=== PATIENT | male | born 1970 | race Caucasian/White ===

== ENCOUNTER 2020-07-22 15:00 | Observation (INO) ==
[2020-07-22] MEDS ORDERED: LORazepam 2 MG/1 ML VIAL IV STA ×2 (16:18→19:10)
[2020-07-22 16:26] LABS: Basophils # 0.1 10*3/uL (0.0-0.2); Basophils % 0.5 % (0.0-0.8); Eosinophils # 0.2 10*3/uL (0.0-0.87); Hematocrit 44.6 VOL% (42.0-52.0); Hemoglobin 15.8 GM/DL (14.0-18.0); Immature Granulocytes % 1.1 %; Immature Granulocytes Absolute 0.11 #; Lymphocytes # 2.5 10*3/uL (1.4-4.0); Lymphocytes % 24.6 % (21.2-54.2); Mean Corpuscular HGB Conc 35.4 GM/DL (32-36); Mean Corpuscular Volume 86.6 FL (87-102); Mean Platelet Volume 11.1 FL (9.6-12.0); Neutrophils % 66.8 % (38.7-73.9); Platelet Count 362 T/CUMM (130-400); Red Blood Count 5.15 MC/CUMM (3.8-5.5); Red Cell Distribution Width 13.2 % (9.3-17.3)
[2020-07-22 17:09] LABS: Alanine Aminotransferase 56 U/L (16-61); Albumin 3.9 G/DL (3.4-5.0); Alkaline Phosphatase 124 U/L (45-117); Aspartate Amino Transferase 39 U/L (0-37); Blood Urea Nitrogen 13 MG/DL (7-18); Carbon Dioxide 23 MMOL/L (21-32); Estimated Glom Filtration Rate 140 ML/MIN; Glucose 168 MG/DL (74-106); Osmolality,Calculated 276.8 MOS/KG (273-304); Potassium 3.7 MMOL/L (3.5-5.1); Sodium 137 MMOL/L (136-145); Total Protein 7.1 G/DL (6.4-8.2)
[2020-07-22 17:34] LABS: Barbiturates Screen,Urine Negative (Negative); Benzodiazepines Screen,Urine Negative (Negative); Cannabinoid Screen,Urine Positive (Negative); Opiate Screen,Urine Negative (Negative); Phencyclidine Screen,Urine Negative (Negative)
[2020-07-22] MEDS ORDERED: SODIUM CHLORIDE 0.9% 1,000 ML IV STA (19:10)
[2020-07-22] MEDS ORDERED: VENLAFAXINE 100 MG TABLET PO ONE (20:56)
[2020-07-22] MEDS ORDERED: PANTOPRAZOLE 40 MG TABLET PO SCH (21:00)
[2020-07-22] MEDS ORDERED: GABAPENTIN 300 MG CAPSULE PO SCH (21:00)
[2020-07-22] MEDS ORDERED: QUEtiapine 25 MG TABLET PO SCH (21:00)
[2020-07-22] MEDS ORDERED: PRAZOSIN 1 MG CAPSULE PO STA (21:22)
[2020-07-22] MEDS ORDERED: QUEtiapine 25 MG TABLET PO ONE (21:23)
[2020-07-22] MEDS ORDERED: GABAPENTIN 300 MG CAPSULE PO ONE (21:24)
[2020-07-22] MEDS ORDERED: ONDANSETRON 4 MG/2 ML VIAL IV PRN (21:37)
[2020-07-22] MEDS ORDERED: ACETAMINOPHEN 325 MG TABLET PO PRN (21:37)
[2020-07-22] MEDS ORDERED: NICOTINE 21 MG/24 HR PATCH TRANSDERM PRN (21:37)
[2020-07-22] MEDS ORDERED: GLUCAGON 1 MG VIAL IM PRN (21:37)
[2020-07-22] MEDS ORDERED: DEXTROSE 50% 25 GM/50 ML VIAL IV PRN (21:37)
[2020-07-22] MEDS ORDERED: hydrALAZINE 20 MG/1 ML VIAL IV PRN (21:37)
[2020-07-22] MEDS ORDERED: traZODone 50 MG TABLET PO PRN (21:37)
[2020-07-22] MEDS ORDERED: LORazepam 2 MG/1 ML VIAL IV PRN (21:44)
[2020-07-22] MEDS ORDERED: ENOXAPARIN 40 MG/0.4 ML SYRINGE SUBCUT SCH (22:00)
[2020-07-22] MEDS: QUEtiapine 25 MG TABLET PO SCH (22:24)
[2020-07-22] MEDS: PRAZOSIN 1 MG CAPSULE PO SCH (22:24)
[2020-07-23 05:35] LABS: Basophils # 0.1 10*3/uL (0.0-0.2); Basophils % 0.6 % (0.0-0.8); Eosinophils # 0.3 10*3/uL (0.0-0.87); Eosinophils % 2.3 % (0.00-10.9); Hematocrit 39.6 VOL% (42.0-52.0); Hemoglobin 13.6 GM/DL (14.0-18.0); Immature Granulocytes % 0.8 %; Immature Granulocytes Absolute 0.09 #; Lymphocytes # 3.5 10*3/uL (1.4-4.0); Lymphocytes % 30.9 % (21.2-54.2); Mean Corpuscular HGB Conc 34.3 GM/DL (32-36); Mean Corpuscular Volume 88.6 FL (87-102); Mean Platelet Volume 11.1 FL (9.6-12.0); Monocytes % 7.8 % (1.7-12.7); Neutrophils % 57.6 % (38.7-73.9); Platelet Count 305 T/CUMM (130-400); Red Blood Count 4.47 MC/CUMM (3.8-5.5); Red Cell Distribution Width 13.1 % (9.3-17.3); White Blood Count 11.3 T/CUMM (4-12)
[2020-07-23 05:57] LABS: Calcium 8.5 MG/DL (8.5-10.1); Osmolality,Calculated 282.4 MOS/KG (273-304)
[2020-07-23] MEDS ORDERED: amLODIPine 5 MG TABLET PO SCH (09:00)
[2020-07-23] MEDS: VENLAFAXINE XR 75 MG CAPSULE PO SCH (09:58)
[2020-07-23] MEDS: GABAPENTIN 300 MG CAPSULE PO SCH ×2 (09:59→20:48)
[2020-07-23] MEDS: PANTOPRAZOLE 40 MG TABLET PO SCH ×2 (09:59→20:51)
[2020-07-23] MEDS ORDERED: POTASSIUM CHLORIDE RIDER 10 MEQ in PREMIX 1 EACH IV PRN (13:31)
[2020-07-23] MEDS ORDERED: POTASSIUM CHLORIDE 20 MEQ/15 ML UDCUP PER TUBE PRN (13:31)
[2020-07-23] MEDS: POTASSIUM CHLORIDE 20 MEQ TABLET PO PRN ×4 (16:05→18:47)
[2020-07-23] MEDS: METOPROLOL TARTRATE 25 MG TABLET PO SCH ×2 (16:05→18:45)
[2020-07-23] MEDS: DOCUSATE SODIUM 100 MG CAPSULE PO PRN (16:13)
[2020-07-23] MEDS: PRAZOSIN 1 MG CAPSULE PO SCH (20:48)
[2020-07-23] MEDS: QUEtiapine 25 MG TABLET PO SCH (20:48)
[2020-07-24] MEDS: METOPROLOL TARTRATE 25 MG TABLET PO SCH ×3 (00:37→11:40)
[2020-07-24 05:27] LABS: Calcium 8.5 MG/DL (8.5-10.1); Osmolality,Calculated 280.3 MOS/KG (273-304); Potassium 3.9 MMOL/L (3.5-5.1)
[2020-07-24] MEDS: GABAPENTIN 300 MG CAPSULE PO SCH (10:14)
[2020-07-24] MEDS: PANTOPRAZOLE 40 MG TABLET PO SCH (10:14)
[2020-07-24] MEDS: POTASSIUM CHLORIDE 20 MEQ TABLET PO PRN (10:14)
[2020-07-24] MEDS: VENLAFAXINE XR 75 MG CAPSULE PO SCH (10:14)
[2020-07-24] MEDS: DOCUSATE SODIUM 100 MG CAPSULE PO PRN (10:14)
[2020-07-24 12:56] VITALS: BP 112/72
[2020-07-27] MEDS ORDERED: ERGOCALCIFEROL 50,000 UNIT CAPSULE PO SCH (21:42)
== END 2020-07-24 13:40 | disposition home or self-care (01) ==
LOC: N.EDINP 15:00 → N.ED 15:00 → SUATTDRO 20:10 → N.4E 22:31
PROVIDERS: ADMIT Internal Medicine; ATTEND Phlebology

== ENCOUNTER 2020-09-27 08:36 | Inpatient (IN) ==
[2020-09-27 09:03] LABS: Basophils # 0.1 10*3/uL (0.0-0.2); Basophils % 0.6 % (0.0-0.8); Eosinophils # 0.3 10*3/uL (0.0-0.87); Eosinophils % 2.4 % (0.00-10.9); Hematocrit 36.4 VOL% (42.0-52.0); Hemoglobin 12.7 GM/DL (14.0-18.0); Immature Granulocytes % 0.8 %; Immature Granulocytes Absolute 0.09 #; Lymphocytes # 3.4 10*3/uL (1.4-4.0); Lymphocytes % 29.6 % (21.2-54.2); Mean Corpuscular HGB Conc 34.9 GM/DL (32-36); Mean Corpuscular Volume 87.5 FL (87-102); Monocytes % 6.1 % (1.7-12.7); Neutrophils % 60.5 % (38.7-73.9); Platelet Count 275 T/CUMM (130-400); Red Blood Count 4.16 MC/CUMM (3.8-5.5); Red Cell Distribution Width 13.9 % (9.3-17.3); White Blood Count 11.4 T/CUMM (4-12)
[2020-09-27] MEDS ORDERED: SODIUM CHLORIDE 0.9% 1,000 ML IV STA (09:16)
[2020-09-27 09:24] LABS: Atypical Lymphocytes Few; Band Neutrophils 1 % (0-10); Eosinophils 8 % (0-10); Lymphocytes 29 % (20-55); Metamyelocytes 1 %; Segmented Neutrophils 56 % (50-85); Total Cells Counted 100
[2020-09-27 09:26] LABS: Microcytosis 1+
[2020-09-27 09:27] LABS: Platelet Estimate Normal
[2020-09-27 09:28] LABS: Alanine Aminotransferase 74 U/L (16-61); Albumin 3.2 G/DL (3.4-5.0); Alkaline Phosphatase 123 U/L (45-117); Aspartate Amino Transferase 64 U/L (0-37); Bilirubin,Total < 0.39 MG/DL (0.2-1.0); Blood Urea Nitrogen 10 MG/DL (7-18); Calcium 8.2 MG/DL (8.5-10.1); Carbon Dioxide 20 MMOL/L (21-32); Estimated Glom Filtration Rate 146 ML/MIN; Glucose 185 MG/DL (74-106); Osmolality,Calculated 280.5 MOS/KG (273-304); Potassium 3.6 MMOL/L (3.5-5.1); Sodium 139 MMOL/L (136-145); Total Protein 6.2 G/DL (6.4-8.2)
[2020-09-27 09:54] LABS: INR 0.9; PT Patient Result 10.4 SECS (10.5-12.0); Partial Thromboplastin Time 27.3 SECS (23.9-33.8)
[2020-09-27 10:02] LABS: Barbiturates Screen,Urine Negative (Negative); Benzodiazepines Screen,Urine Positive (Negative); Cannabinoid Screen,Urine Positive (Negative); Opiate Screen,Urine Negative (Negative); Phencyclidine Screen,Urine Negative (Negative)
[2020-09-27] MEDS ORDERED: ONDANSETRON 4 MG/2 ML VIAL IV STA (10:52)
[2020-09-27] MEDS ORDERED: MORPHINE 4 MG/1 ML VIAL IV ONE ×2 (10:52→17:22)
[2020-09-27] MEDS ORDERED: DEXTROSE 50% 25 GM/50 ML VIAL IV PRN (11:20)
[2020-09-27] MEDS ORDERED: NICOTINE 21 MG/24 HR PATCH TRANSDERM PRN (11:20)
[2020-09-27] MEDS ORDERED: GLUCAGON 1 MG VIAL IM PRN (11:20)
[2020-09-27] MEDS ORDERED: QUEtiapine 100 MG TABLET PO PRN (11:27)
[2020-09-27] MEDS ORDERED: BISACODYL 5 MG TABLET PO ONE (12:00)
[2020-09-27] MEDS: SODIUM CHLORIDE 0.9% 1,000 ML IV SCH ×2 (12:05→23:02)
[2020-09-27 13:08] LABS: Hepatitis B Core IgM Quant 0.05 Index; Hepatitis B Surface Ag Quant 0.42 Index; Hepatitis B Surface Ag Result Non-Reactive (NonReactive); Hepatitis C Virus Ab Quant 0.05 Index; Hepatitis C Virus Ab Result Non-Reactive (NonReactive)
[2020-09-27 13:11] LABS: % Iron Saturation 20.5 % (18-50); Ferritin 214.7 ng/ml (26-388)
[2020-09-27 13:26] LABS: Folate 22.45 NG/ML (5.38-24.0)
[2020-09-27 15:03] LABS: Hemoglobin 13.7 GM/DL (14.0-18.0)
[2020-09-27] MEDS: ALPRAZolam 0.5 MG TABLET PO SCH ×2 (15:40→21:30)
[2020-09-27] MEDS: GABAPENTIN 300 MG CAPSULE PO SCH ×2 (15:40→21:30)
[2020-09-27] MEDS ORDERED: POLYETHYLENE GLYCOL POWDER 255 GM BOTTLE PO ONE (18:00)
[2020-09-27 19:01] LABS: Hematocrit 36.1 VOL% (42.0-52.0); Hemoglobin 12.4 GM/DL (14.0-18.0)
[2020-09-27] MEDS: PRAZOSIN 1 MG CAPSULE PO SCH (21:30)
[2020-09-27] MEDS: METOPROLOL TARTRATE 25 MG TABLET PO SCH (21:30)
[2020-09-27] MEDS: VENLAFAXINE XR 75 MG CAPSULE PO SCH (21:30)
[2020-09-27] MEDS: PANTOPRAZOLE 40 MG VIAL IV SCH (23:00)
[2020-09-28] MEDS ORDERED: ACETAMINOPHEN 325 MG TABLET PO PRN (00:23)
[2020-09-28 05:06] LABS: Basophils # 0.1 10*3/uL (0.0-0.2); Basophils % 0.5 % (0.0-0.8); Eosinophils # 0.3 10*3/uL (0.0-0.87); Eosinophils % 2.7 % (0.00-10.9); Hematocrit 35.3 VOL% (42.0-52.0); Hemoglobin 11.9 GM/DL (14.0-18.0); Immature Granulocytes % 0.8 %; Immature Granulocytes Absolute 0.07 #; Lymphocytes # 2.8 10*3/uL (1.4-4.0); Lymphocytes % 30.3 % (21.2-54.2); Mean Corpuscular HGB Conc 33.7 GM/DL (32-36); Mean Corpuscular Volume 88.5 FL (87-102); Monocytes % 7.9 % (1.7-12.7); Neutrophils % 57.8 % (38.7-73.9); Platelet Count 261 T/CUMM (130-400); Red Blood Count 3.99 MC/CUMM (3.8-5.5); Red Cell Distribution Width 13.7 % (9.3-17.3); White Blood Count 9.1 T/CUMM (4-12)
[2020-09-28 05:13] LABS: PT Patient Result 10.9 SECS (10.5-12.0)
[2020-09-28 05:32] LABS: Albumin 3.2 G/DL (3.4-5.0); Bilirubin,Total 0.7 MG/DL (0.2-1.0); Calcium 7.8 MG/DL (8.5-10.1); Osmolality,Calculated 278.3 MOS/KG (273-304); Potassium 3.5 MMOL/L (3.5-5.1); Risk Ratio 7.76; Total Protein 6.3 G/DL (6.4-8.2); VLDL CHOLESTEROL 217.8 MG/DL
[2020-09-28 05:38] LABS: Eosinophils 6 % (0-10); Lymphocytes 32 % (20-55); Nucleated Red Blood Cells 1 (0-5); Platelet Estimate Adequate; Segmented Neutrophils 58 % (50-85); Total Cells Counted 100
[2020-09-28 05:39] LABS: Atypical Lymphocytes Few; Hypochromasia 1+; Microcytosis 1+
[2020-09-28] MEDS ORDERED: MAGNESIUM CITRATE 300 ML BOTTLE PO ONE (06:00)
[2020-09-28] MEDS ORDERED: LACTATED RINGERS 1,000 ML IV SCH (08:00)
[2020-09-28] MEDS: SODIUM CHLORIDE 0.9% 1,000 ML IV SCH (08:15)
[2020-09-28] MEDS: ALPRAZolam 0.5 MG TABLET PO SCH ×3 (08:21→20:39)
[2020-09-28] MEDS: METOPROLOL TARTRATE 25 MG TABLET PO SCH ×2 (08:22→20:39)
[2020-09-28] MEDS: VENLAFAXINE XR 75 MG CAPSULE PO SCH ×2 (08:22→20:39)
[2020-09-28] MEDS: GABAPENTIN 300 MG CAPSULE PO SCH ×3 (08:22→20:39)
[2020-09-28] MEDS: PANTOPRAZOLE 40 MG VIAL IV SCH ×2 (08:23→20:39)
[2020-09-28] MEDS ORDERED: ERGOCALCIFEROL 50,000 UNIT CAPSULE PO SCH (11:27)
[2020-09-28] MEDS ORDERED: LIDOCAINE 2% 5 ML VIAL ONE (14:26)
[2020-09-28] MEDS ORDERED: propofoL 200 MG/20 ML VIAL IV ONE (14:26)
[2020-09-28] MEDS: PRAZOSIN 1 MG CAPSULE PO SCH (20:39)
[2020-09-29 04:46] LABS: Basophils # 0.1 10*3/uL (0.0-0.2); Basophils % 0.6 % (0.0-0.8); Eosinophils # 0.3 10*3/uL (0.0-0.87); Eosinophils % 3.8 % (0.00-10.9); Hematocrit 35.3 VOL% (42.0-52.0); Immature Granulocytes % 0.7 %; Immature Granulocytes Absolute 0.06 #; Lymphocytes # 2.4 10*3/uL (1.4-4.0); Lymphocytes % 28.5 % (21.2-54.2); Mean Corpuscular Volume 89.1 FL (87-102); Mean Platelet Volume 10.8 FL (9.6-12.0); Monocytes % 8.6 % (1.7-12.7); Neutrophils % 57.8 % (38.7-73.9); Platelet Count 260 T/CUMM (130-400); Red Blood Count 3.96 MC/CUMM (3.8-5.5); Red Cell Distribution Width 13.7 % (9.3-17.3); White Blood Count 8.5 T/CUMM (4-12)
[2020-09-29 05:08] LABS: Albumin 3.1 G/DL (3.4-5.0); Bilirubin,Total 0.5 MG/DL (0.2-1.0); Calcium 7.8 MG/DL (8.5-10.1); Osmolality,Calculated 278.3 MOS/KG (273-304); Potassium 3.7 MMOL/L (3.5-5.1); Total Protein 6.2 G/DL (6.4-8.2)
[2020-09-29 05:15] LABS: Eosinophils 7 % (0-10); Lymphocytes 26 % (20-55); Segmented Neutrophils 61 % (50-85); Total Cells Counted 100
[2020-09-29 05:16] LABS: Hypochromasia Slight; Microcytosis 1+; Platelet Estimate Normal
[2020-09-29 07:43] VITALS: BP 110/68
[2020-09-29] MEDS ORDERED: FENOFIBRATE 145 MG TABLET PO SCH (09:00)
[2020-09-29] MEDS: PANTOPRAZOLE 40 MG VIAL IV SCH (09:03)
[2020-09-29] MEDS: VENLAFAXINE XR 75 MG CAPSULE PO SCH (09:03)
[2020-09-29] MEDS: ALPRAZolam 0.5 MG TABLET PO SCH (09:04)
[2020-09-29] MEDS: GABAPENTIN 300 MG CAPSULE PO SCH (09:04)
[2020-09-29] MEDS: METOPROLOL TARTRATE 25 MG TABLET PO SCH (09:04)
== END 2020-09-29 11:23 | disposition home or self-care (01) | DRG 378 ==
LOC: EDBD → EDUNIT# → N.ED 08:36 → N.EDINP 08:36 → N.4E 14:19 → SUATTDRO 09-28 07:46
PROVIDERS: ADMIT Internal Medicine; ATTEND Internal Medicine

== ENCOUNTER 2020-11-30 13:25 | Observation (INO) ==
[2020-11-30] MEDS ORDERED: PANTOPRAZOLE INJ 80 MG in SODIUM CHLORIDE 0.9% 100 ML IV STA (13:47)
[2020-11-30] MEDS ORDERED: SODIUM CHLORIDE 0.9% 1,000 ML IV STA (13:47)
[2020-11-30] MEDS ORDERED: PANTOPRAZOLE 40 MG VIAL IV ONE (13:54)
[2020-11-30] MEDS ORDERED: HYDROmorphone 2 MG/1 ML VIAL IV STA (14:36)
[2020-11-30] MEDS ORDERED: ONDANSETRON 4 MG/2 ML VIAL IV STA (14:36)
[2020-11-30] MEDS ORDERED: fentaNYL 100 MCG/2 ML VIAL ONE (14:39)
[2020-11-30 14:48] LABS: Basophils # 0.1 10*3/uL (0.0-0.2); Basophils % 1.1 % (0.0-0.8); Eosinophils # 0.2 10*3/uL (0.0-0.87); Eosinophils % 1.6 % (0.00-10.9); Hematocrit 47.2 VOL% (42.0-52.0); Hemoglobin 15.9 GM/DL (14.0-18.0); Immature Granulocytes % 0.7 %; Immature Granulocytes Absolute 0.07 #; Lymphocytes # 2.7 10*3/uL (1.4-4.0); Lymphocytes % 26.1 % (21.2-54.2); Mean Corpuscular HGB Conc 33.7 GM/DL (32-36); Mean Corpuscular Volume 88.4 FL (87-102); Mean Platelet Volume 11.3 FL (9.6-12.0); Monocytes % 6.3 % (1.7-12.7); Neutrophils % 64.2 % (38.7-73.9); Platelet Count 316 T/CUMM (130-400); Red Blood Count 5.34 MC/CUMM (3.8-5.5); Red Cell Distribution Width 13.2 % (9.3-17.3); White Blood Count 10.2 T/CUMM (4-12)
[2020-11-30] MEDS ORDERED: fentaNYL 100 MCG/2 ML VIAL IV STA (14:52)
[2020-11-30 15:05] LABS: Bilirubin,Total 0.4 MG/DL (0.20-1.00); Calcium 9.2 MG/DL (8.5-10.1); Osmolality,Calculated 275.8 MOS/KG (273-304); Potassium 4.1 MMOL/L (3.5-5.1); Total Protein 7.7 G/DL (6.4-8.2)
[2020-11-30 15:54] LABS: Bilirubin,Urine Negative (Negative); Blood, Urine Negative (Negative); Glucose,Urine (UA) Negative (Negative); Ketones,Urine Negative (Negative); Mucus,Urine Occasional /LPF (Occasional); Nitrite,Urine Negative (Negative); Protein,Urine Negative; RBC,Urine 1 /HPF (0-4); Urine Appearance CLEAR (Clear); Urine Color Yellow (Yellow); Urine Urobilinogen < 2.0 EU/DL (0.2-1.0)
[2020-11-30] MEDS ORDERED: NICOTINE 21 MG/24 HR PATCH TRANSDERM PRN (17:27)
[2020-11-30] MEDS ORDERED: MORPHINE 2 MG/1 ML SYRINGE IV PRN (17:27)
[2020-11-30] MEDS ORDERED: DEXTROSE 50% 25 GM/50 ML VIAL IV PRN (17:27)
[2020-11-30] MEDS ORDERED: ONDANSETRON 4 MG/2 ML VIAL IV PRN (17:27)
[2020-11-30] MEDS ORDERED: GLUCAGON 1 MG VIAL IM PRN (17:27)
[2020-11-30] MEDS: SODIUM CHLORIDE 0.45% 1,000 ML IV SCH (18:45)
[2020-11-30 21:03] LABS: Hematocrit 43.9 VOL% (42.0-52.0); Hemoglobin 14.7 GM/DL (14.0-18.0)
[2020-11-30] MEDS ORDERED: QUEtiapine 100 MG TABLET PO PRN ×2 (23:23→23:52)
[2020-12-01] MEDS: OMEGA 3 ACID ETHYL ESTERS 1 GM CAPSULE PO SCH ×2 (00:33→09:51)
[2020-12-01] MEDS: VENLAFAXINE XR 75 MG CAPSULE PO SCH ×2 (00:34→09:49)
[2020-12-01] MEDS: GABAPENTIN 300 MG CAPSULE PO SCH ×2 (00:34→09:51)
[2020-12-01] MEDS: METOPROLOL TARTRATE 25 MG TABLET PO SCH ×2 (00:34→09:49)
[2020-12-01] MEDS: ALPRAZolam 0.5 MG TABLET PO SCH ×3 (00:34→14:56)
[2020-12-01] MEDS ORDERED: HYDROmorphone 2 MG/1 ML VIAL IV ONE (02:27)
[2020-12-01] MEDS ORDERED: OXYMETAZOLINE 0.05% NASAL SPRAY 15 ML BOTTLE BOTH NARES PRN (02:28)
[2020-12-01 05:47] LABS: Basophils # 0.1 10*3/uL (0.0-0.2); Basophils % 0.7 % (0.0-0.8); Eosinophils # 0.2 10*3/uL (0.0-0.87); Eosinophils % 2.1 % (0.00-10.9); Hematocrit 45.8 VOL% (42.0-52.0); Hemoglobin 15.5 GM/DL (14.0-18.0); Immature Granulocytes % 0.8 %; Immature Granulocytes Absolute 0.09 #; Lymphocytes # 3.4 10*3/uL (1.4-4.0); Lymphocytes % 30.2 % (21.2-54.2); Mean Corpuscular HGB Conc 33.8 GM/DL (32-36); Mean Corpuscular Volume 89.3 FL (87-102); Mean Platelet Volume 11.7 FL (9.6-12.0); Monocytes % 5.9 % (1.7-12.7); Neutrophils % 60.3 % (38.7-73.9); Platelet Count 324 T/CUMM (130-400); Red Blood Count 5.13 MC/CUMM (3.8-5.5); Red Cell Distribution Width 13.2 % (9.3-17.3); White Blood Count 11.1 T/CUMM (4-12)
[2020-12-01 05:49] LABS: Hematocrit 45.2 VOL% (42.0-52.0); Hemoglobin 15.3 GM/DL (14.0-18.0)
[2020-12-01 06:05] LABS: Calcium 9.3 MG/DL (8.5-10.1); Osmolality,Calculated 274.7 MOS/KG (273-304)
[2020-12-01] MEDS: SODIUM CHLORIDE 0.45% 1,000 ML IV SCH ×2 (06:37→17:04)
[2020-12-01] MEDS ORDERED: ERGOCALCIFEROL 50,000 UNIT CAPSULE PO SCH (09:00)
[2020-12-01] MEDS ORDERED: FENOFIBRATE 145 MG TABLET PO SCH (09:00)
[2020-12-01] MEDS ORDERED: PANTOPRAZOLE 40 MG VIAL IV SCH (09:00)
[2020-12-01 09:06] LABS: Hematocrit 42.5 VOL% (42.0-52.0); Hemoglobin 14.1 GM/DL (14.0-18.0)
[2020-12-01] MEDS: LIDOCAINE 5% PATCH TRANSDERM SCH ×2 (09:47→09:51)
[2020-12-01 12:15] VITALS: BP 106/66
[2020-12-01 14:58] LABS: Hematocrit 43.9 VOL% (42.0-52.0)
[2020-12-01] MEDS ORDERED: GABAPENTIN 300 MG CAPSULE PO SCH (15:00)
[2020-12-01] MEDS ORDERED: PRAZOSIN 1 MG CAPSULE PO SCH (23:23)
== END 2020-12-01 17:04 | disposition home or self-care (01) ==
LOC: EDBD → EDUNIT# → N.EDINP 13:25 → N.ED 13:25 → SUATTDRO 17:27 → N.3E 18:37
PROVIDERS: ADMIT Hospitalist; ATTEND Internal Medicine

== ENCOUNTER 2021-01-19 16:27 | Inpatient (IN) ==
[2021-01-19] MEDS ORDERED: HYDROmorphone 2 MG/1 ML VIAL IV STA (16:40)
[2021-01-19 17:04] LABS: Basophils # 0.1 10*3/uL (0.0-0.2); Basophils % 0.8 % (0.0-0.8); Eosinophils # 0.4 10*3/uL (0.0-0.87); Eosinophils % 3.3 % (0.00-10.9); Hematocrit 43.9 VOL% (42.0-52.0); Hemoglobin 14.7 GM/DL (14.0-18.0); Immature Granulocytes % 0.6 %; Immature Granulocytes Absolute 0.07 #; Lymphocytes # 3.5 10*3/uL (1.4-4.0); Lymphocytes % 30.8 % (21.2-54.2); Mean Corpuscular HGB Conc 33.5 GM/DL (32-36); Mean Corpuscular Volume 88.3 FL (87-102); Mean Platelet Volume 11.7 FL (9.6-12.0); Monocytes % 6.8 % (1.7-12.7); Neutrophils % 57.7 % (38.7-73.9); Platelet Count 303 T/CUMM (130-400); Red Blood Count 4.97 MC/CUMM (3.8-5.5); Red Cell Distribution Width 13.5 % (9.3-17.3); White Blood Count 11.4 T/CUMM (4-12)
[2021-01-19] MEDS ORDERED: CLINDAMYCIN INJ 900 MG/50 ML PREMIX IV ONE (17:07)
[2021-01-19] MEDS ORDERED: ONDANSETRON 4 MG/2 ML VIAL ONE (17:27)
[2021-01-19] MEDS ORDERED: DEXAMETHASONE 4 MG/1 ML VIAL ONE ×2 (17:27→17:50)
[2021-01-19] MEDS ORDERED: propofoL 200 MG/20 ML VIAL IV ONE ×2 (17:27→17:50)
[2021-01-19] MEDS ORDERED: LIDOCAINE 2% 5 ML VIAL ONE (17:27)
[2021-01-19] MEDS ORDERED: SEVOFLURANE 1 UNIT/15 MINUTE INH ONE ×3 (17:27→18:31)
[2021-01-19] MEDS ORDERED: MIDAZOLAM 2 MG/2 ML VIAL ONE (17:28)
[2021-01-19] MEDS ORDERED: fentaNYL 100 MCG/2 ML VIAL ONE (17:28)
[2021-01-19] MEDS ORDERED: ACETAMINOPHEN INJ 1,000 MG/100 ML VIAL IV ONE (17:29)
[2021-01-19 17:31] LABS: Calcium 9.2 MG/DL (8.5-10.1); Osmolality,Calculated 276.5 MOS/KG (273-304); Potassium 3.7 MMOL/L (3.5-5.1)
[2021-01-19] MEDS ORDERED: KETOROLAC 30 MG/1 ML VIAL ONE (17:31)
[2021-01-19] MEDS ORDERED: ONDANSETRON 4 MG/2 ML VIAL IV PRN ×2 (17:38→18:11)
[2021-01-19] MEDS ORDERED: ACETAMINOPHEN 325 MG TABLET PO PRN (17:38)
[2021-01-19] MEDS ORDERED: diphenhydrAMINE CAP 25 MG CAPSULE PO PRN (17:42)
[2021-01-19] MEDS ORDERED: LACTATED RINGERS 1,000 ML IV ONE (18:08)
[2021-01-19] MEDS ORDERED: HYDROmorphone 2 MG/1 ML VIAL IV PRN (18:11)
[2021-01-19] MEDS ORDERED: MAGNESIUM HYDROXIDE SUSP 30 ML UDCUP PO ONE (20:00)
[2021-01-19] MEDS: HYDROmorphone 2 MG/1 ML VIAL IV PRN (20:12)
[2021-01-20] MEDS: HYDROmorphone 2 MG/1 ML VIAL IV PRN ×6 (00:56→20:50)
[2021-01-20] MEDS ORDERED: DIBUCAINE 1% OINT 28 GM TUBE TOP ONE (02:35)
[2021-01-20 05:26] LABS: Basophils % 0.3 % (0.0-0.8); Eosinophils % 0.2 % (0.00-10.9); Hematocrit 42.8 VOL% (42.0-52.0); Hemoglobin 14.6 GM/DL (14.0-18.0); Immature Granulocytes % 0.5 %; Immature Granulocytes Absolute 0.05 #; Lymphocytes # 1.4 10*3/uL (1.4-4.0); Lymphocytes % 12.7 % (21.2-54.2); Mean Corpuscular HGB Conc 34.1 GM/DL (32-36); Mean Corpuscular Volume 88.6 FL (87-102); Mean Platelet Volume 12.1 FL (9.6-12.0); Monocytes % 4.1 % (1.7-12.7); Neutrophils % 82.2 % (38.7-73.9); Platelet Count 291 T/CUMM (130-400); Red Blood Count 4.83 MC/CUMM (3.8-5.5); Red Cell Distribution Width 13.3 % (9.3-17.3); White Blood Count 10.7 T/CUMM (4-12)
[2021-01-20] MEDS: POLYETHYLENE GLYCOL POWDER 17 GM PACK PO SCH (08:57)
[2021-01-20] MEDS ORDERED: MAGNESIUM CITRATE 300 ML BOTTLE PO ONE (11:00)
[2021-01-20] MEDS: GABAPENTIN 300 MG CAPSULE PO SCH (11:34)
[2021-01-20] MEDS: ALPRAZolam 0.5 MG TABLET PO PRN ×2 (14:15→19:55)
[2021-01-20] MEDS: NICOTINE 21 MG/24 HR PATCH TRANSDERM PRN (14:15)
[2021-01-20] MEDS: PANTOPRAZOLE 40 MG TABLET PO SCH (17:06)
[2021-01-20] MEDS: oxyCODONE/ACETAMINOPHEN 5-325 MG TABLET PO PRN (19:55)
[2021-01-20] MEDS: GABAPENTIN 600 MG TABLET PO SCH (20:50)
[2021-01-20] MEDS: METOPROLOL TARTRATE 25 MG TABLET PO SCH (20:50)
[2021-01-21] MEDS: HYDROmorphone 2 MG/1 ML VIAL IV PRN ×4 (00:35→18:56)
[2021-01-21] MEDS: QUEtiapine 100 MG TABLET PO PRN (00:35)
[2021-01-21] MEDS: oxyCODONE/ACETAMINOPHEN 5-325 MG TABLET PO PRN ×4 (02:20→21:25)
[2021-01-21 09:07] LABS: Basophils # 0.1 10*3/uL (0.0-0.2); Basophils % 0.5 % (0.0-0.8); Eosinophils # 0.3 10*3/uL (0.0-0.87); Eosinophils % 2.6 % (0.00-10.9); Hematocrit 34.8 VOL% (42.0-52.0); Hemoglobin 11.6 GM/DL (14.0-18.0); Immature Granulocytes % 0.6 %; Immature Granulocytes Absolute 0.07 #; Lymphocytes # 3.6 10*3/uL (1.4-4.0); Lymphocytes % 32.2 % (21.2-54.2); Mean Corpuscular HGB Conc 33.3 GM/DL (32-36); Mean Corpuscular Volume 87.9 FL (87-102); Mean Platelet Volume 11.9 FL (9.6-12.0); Monocytes % 7.7 % (1.7-12.7); Neutrophils % 56.4 % (38.7-73.9); Platelet Count 291 T/CUMM (130-400); Red Blood Count 3.96 MC/CUMM (3.8-5.5); Red Cell Distribution Width 13.3 % (9.3-17.3); White Blood Count 11.3 T/CUMM (4-12)
[2021-01-21] MEDS: VENLAFAXINE XR 75 MG CAPSULE PO SCH (09:12)
[2021-01-21] MEDS: NICOTINE 21 MG/24 HR PATCH TRANSDERM PRN (09:12)
[2021-01-21] MEDS: METOPROLOL TARTRATE 25 MG TABLET PO SCH ×2 (09:13→21:25)
[2021-01-21] MEDS: GABAPENTIN 300 MG CAPSULE PO SCH ×2 (09:13→11:44)
[2021-01-21] MEDS: PANTOPRAZOLE 40 MG TABLET PO SCH ×2 (09:13→17:45)
[2021-01-21] MEDS: FENOFIBRATE 145 MG TABLET PO SCH (09:13)
[2021-01-21] MEDS: POLYETHYLENE GLYCOL POWDER 17 GM PACK PO SCH ×2 (09:16)
[2021-01-21 09:23] LABS: Calcium 8.7 MG/DL (8.5-10.1); Potassium 3.1 MMOL/L (3.5-5.1)
[2021-01-21] MEDS: GABAPENTIN 600 MG TABLET PO SCH (21:25)
[2021-01-22] MEDS: HYDROmorphone 2 MG/1 ML VIAL IV PRN ×5 (00:54→23:00)
[2021-01-22] MEDS: oxyCODONE/ACETAMINOPHEN 5-325 MG TABLET PO PRN ×4 (04:44→17:49)
[2021-01-22] MEDS ORDERED: DIBUCAINE 1% OINT 28 GM TUBE TOP PRN (08:14)
[2021-01-22] MEDS: VENLAFAXINE XR 75 MG CAPSULE PO SCH (08:48)
[2021-01-22] MEDS: POLYETHYLENE GLYCOL POWDER 17 GM PACK PO SCH ×2 (08:48→08:49)
[2021-01-22] MEDS: ALPRAZolam 0.5 MG TABLET PO PRN (08:49)
[2021-01-22] MEDS: GABAPENTIN 300 MG CAPSULE PO SCH ×2 (08:49→11:36)
[2021-01-22] MEDS: FENOFIBRATE 145 MG TABLET PO SCH (08:49)
[2021-01-22] MEDS: PANTOPRAZOLE 40 MG TABLET PO SCH ×2 (08:49→17:49)
[2021-01-22] MEDS: METOPROLOL TARTRATE 25 MG TABLET PO SCH ×2 (08:49→21:28)
[2021-01-22] MEDS: QUEtiapine 100 MG TABLET PO PRN (21:28)
[2021-01-22] MEDS: GABAPENTIN 600 MG TABLET PO SCH (21:28)
[2021-01-23] MEDS: HYDROmorphone 2 MG/1 ML VIAL IV PRN ×5 (03:32→23:18)
[2021-01-23] MEDS: POLYETHYLENE GLYCOL POWDER 17 GM PACK PO SCH ×2 (09:08)
[2021-01-23] MEDS: GABAPENTIN 300 MG CAPSULE PO SCH ×2 (09:08→11:29)
[2021-01-23] MEDS: VENLAFAXINE XR 75 MG CAPSULE PO SCH (09:08)
[2021-01-23] MEDS: FENOFIBRATE 145 MG TABLET PO SCH (09:08)
[2021-01-23] MEDS: PANTOPRAZOLE 40 MG TABLET PO SCH ×2 (09:08→17:34)
[2021-01-23] MEDS: ALPRAZolam 0.5 MG TABLET PO PRN ×2 (09:08→21:33)
[2021-01-23] MEDS: METOPROLOL TARTRATE 25 MG TABLET PO SCH ×2 (09:08→21:33)
[2021-01-23] MEDS: oxyCODONE/ACETAMINOPHEN 5-325 MG TABLET PO PRN ×2 (09:17→21:33)
[2021-01-23] MEDS: GABAPENTIN 600 MG TABLET PO SCH (21:33)
[2021-01-23] MEDS: QUEtiapine 100 MG TABLET PO PRN (21:33)
[2021-01-24] MEDS: HYDROmorphone 2 MG/1 ML VIAL IV PRN (03:55)
[2021-01-24] MEDS: PANTOPRAZOLE 40 MG TABLET PO SCH ×2 (07:00→16:38)
[2021-01-24] MEDS: POLYETHYLENE GLYCOL POWDER 17 GM PACK PO SCH ×2 (08:33→10:35)
[2021-01-24] MEDS: VENLAFAXINE XR 75 MG CAPSULE PO SCH (09:15)
[2021-01-24] MEDS: FENOFIBRATE 145 MG TABLET PO SCH (09:15)
[2021-01-24] MEDS: GABAPENTIN 300 MG CAPSULE PO SCH ×2 (09:15→12:46)
[2021-01-24] MEDS: METOPROLOL TARTRATE 25 MG TABLET PO SCH (09:15)
[2021-01-24] MEDS: oxyCODONE/ACETAMINOPHEN 5-325 MG TABLET PO PRN ×2 (09:16→15:35)
[2021-01-24 10:59] VITALS: BP 107/49
== END 2021-01-24 16:37 | disposition home or self-care (01) | DRG 810 ==
LOC: EDBD → EDUNIT# → N.EDINP 16:27 → N.ED 16:27 → N.3E 17:30 → N.ED 17:37 → N.3E 18:22
PROVIDERS: ADMIT Student in an Organized Health Care Education/Training Program; ATTEND Student in an Organized Health Care Education/Training Program